=== PATIENT | male | born 1985 | race Caucasian/White ===

== ENCOUNTER 2018-12-12 12:27 | Emergency (ER) | payer SELFPAY ==
[2018-12-12] MEDS ORDERED: ONDANSETRON 4 MG TAB.RAPDIS PO ONE (13:15)
--- NOTE | 2018-12-12 13:17 | ER Document Report ---
ED Medical Screen (RME) - General Chief Complaint: Alcohol Withdrawl Stated Complaint: WITHDRAWL Time Seen by Provider: 12/12/18 13:10 Notes: 33-year-old male patient comes emergency room requesting detox. States he drinks 1 L of liquor on a daily basis. Last drink was about midnight. He last went through a detox program about a year ago, and states he started drinking the day he got out of that 6-day program. He is concerned about the symptoms he would experience if he does not continue drinking. He states he feels like he is getting dehydrated now. His heart rate is in the 80s, and he is not shaking at this time. I have greeted and performed a rapid initial assessment of this patient. A comprehensive ED assessment and evaluation of the patient, analysis of test results and completion of the medical decision making process will be conducted by additional ED providers. TRAVEL OUTSIDE OF THE [place] IN LAST 30 DAYS: No - Related Data Allergies/Adverse Reactions: No Known Allergies Allergy (Verified 12/12/18 12:29)
[2018-12-12 15:04] LABS: ABSOLUTE LYMPHOCYTES (AUTO) 1.7 10^3/uL (0.5-4.7); ABSOLUTE MONOCYTES (AUTO) 0.5 10^3/uL (0.1-1.4); ABSOLUTE NEUT (AUTO) 4.4 10^3/uL (1.7-8.2); BASOPHILS % (AUTO) 0.4 % (0-2); EOSINOPHILS % (AUTO) 0.5 % (0-6); HEMATOCRIT 44.3 % (37.9-51.0); HEMOGLOBIN 15.3 g/dL (13.5-17.0); LYMPHOCYTES % (AUTO) 26.3 % (13-45); MEAN CORPUSCULAR HEMOGLOBIN 32.2 pg (27.0-33.4); MEAN CORPUSCULAR HGB CONC 34.6 g/dL (32.0-36.0); MEAN CORPUSCULAR VOLUME 93 fl (80-97); MONOCYTES % (AUTO) 7.3 % (3-13); PLATELET COUNT 228 10^3/uL (150-450); RED BLOOD COUNT 4.75 10^6/uL (4.35-5.55); RED CELL DISTRIBUTION WIDTH 12.5 % (11.5-14.0); SEGMENTED NEUTROPHILS % (AUTO) 65.5 % (42-78); TOTAL CELLS COUNTED % (AUTO) 100 %; WHITE BLOOD COUNT 6.6 10^3/uL (4.0-10.5)
[2018-12-12 15:21] LABS: ALANINE AMINOTRANSFERASE 65 U/L (21-72); ALBUMIN 4.9 g/dL (3.5-5.0); ALCOHOL 216 mg/dL (NONE DETECTED); ALKALINE PHOSPHATASE 69 U/L (38-126); ANION GAP 12 (5-19); ASPARTATE AMINO TRANSFERASE 74 U/L (17-59); BILIRUBIN,DIRECT 0.2 mg/dL (0.0-0.4); BILIRUBIN,TOTAL 0.4 mg/dL (0.2-1.3); BLOOD UREA NITROGEN 9 mg/dL (7-20); CALCIUM 8.9 mg/dL (8.4-10.2); CARBON DIOXIDE 30 mmol/L (22-30); CHLORIDE 102 mmol/L (98-107); GLUCOSE 104 mg/dL (75-110); POTASSIUM 4.9 mmol/L (3.6-5.0); SODIUM 143.9 mmol/L (137-145); TOTAL PROTEIN 7.7 g/dL (6.3-8.2)
[2018-12-12 15:23] LABS: ACETAMINOPHEN < 10 ug/mL (10-30); SALICYLATE < 1.0 mg/dL (2.0-20.0)
--- NOTE | 2018-12-12 15:24 | PSYCHOLOGICAL NOTE ---
Psych Note - Psych Note Date seen by psych provider: 12/12/18 Time seen by psych provider: 14:45 Psych Note: Reason for consult:Detox Contact Permissions:None Patient is a 33 yo male presenting to the ED requesting assistance for alcohol detox. Chart review shows no prior MH or S/A visits. 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 Patient states his ETOH use has escalated over the last two months from being able to hide it by drinking only at night to needing to drink when he wakes up in order to function. He reports 1ltr/vodka daily for many years but states "I drink so much it's hard to say how much it is exactly" He reports an unknown number of prior detox with last one year ago for approximately 6 days with relapse promptly after discharge. He denies ever engaging in rehab or outpatient SAIOP after detox. Patient denies family S/A or MH hx, denies SI, HI, and AV/H, denies MH dx, past suicide attempts, hx of NSSI or IP treatment. Patient denies any hx of trauma and denies legal problems. Patient and his fellow employees rent a house in [place]. He is not currently on any medication, denies drug allergies or seizure disorder but discloses that he's had one seizure during withdrawal in the past. Patient is alert and oriented x 4. Mood is anxious with mood affect. Patient denies SI, HI, and AV/H, does not appear to be responding to internal stimuli, and no delusions were noted. Conversational speech was WNL for rate, tone, and prosody. Eye contact was maintained. Thought processes were linear, organized, and rational. Intellectual abilities were estimated within the average range. Attention/concentration was WNL while, insight, judgment, and impulse control were fair. Diagnosis: 303.90 (F10.20) Alcohol Use Disorder, Severe Medication recommendations as per psychiatric provider, Dr. Robles are as follows: No medication recommendations at this time Patient is psychiatrically clear from acute psychiatric services as there is not risk of harm to self or others aeb Patient denies SI, HI, and AV/H, does not appear to be responding to internal stimuli, and no delusions were noted. Patient is a 33 yo male presenting to the ED requesting assistance with detox from alcohol/is 1ltr.day vodka for unstated number of years. Patient was provided with prychoeducation about the process for connecting to detox services and given contact information for [facility]. Also provided psychoeducation to patient about self-pay short, mid range and long-term rehabs available and benefits. Plan is for patient to call [facility] upon discharged to obtain a bed. Consulted Dr. Gracia in the care and treatment of this patient and ED physician who is in agreement with disposition and recommendation.
--- NOTE | 2018-12-12 15:26 | EKG REPORT ---
SEVERITY:- OTHERWISE NORMAL ECG - SINUS RHYTHM ACCELERATED AV CONDUCTION. : Confirmed by: Aris Hernandez MD 12-Dec-2018 15:25:29
[2018-12-12 15:29] LABS: APPEARANCE,URINE CLEAR; BILIRUBIN,URINE NEGATIVE (NEGATIVE); COLOR,URINE YELLOW; GLUCOSE, URINE NEGATIVE (NEGATIVE); KETONES,URINE NEGATIVE (NEGATIVE); LEUKOCYTE ESTERASE,URINE NEGATIVE (NEGATIVE); NITRITE,URINE NEGATIVE (NEGATIVE); PROTEIN,URINE NEGATIVE (NEGATIVE); URINE SPECIFIC GRAVITY 1.024; UROBILINOGEN,URINE NEGATIVE mg/dL (<2.0)
[2018-12-12 15:45] LABS: URINE BARBITURATES SCREEN NEGATIVE; URINE BENZODIAZEPINES SCREEN NEGATIVE; URINE COCAINE SCREEN NEGATIVE; URINE MARIJUANA (THC) SCREEN NEGATIVE; URINE METHADONE SCREEN NEGATIVE; URINE PHENCYCLIDINE SCREEN NEGATIVE
[2018-12-12] MEDS ORDERED: FOLIC ACID 1 MG TABLET PO ONE (19:12)
[2018-12-12] MEDS ORDERED: DIAZEPAM INJ 10 MG/2 ML DISP.SYRIN IV ONE (19:12)
[2018-12-12] MEDS ORDERED: ONDANSETRON HCL INJ/PF 4 MG/2 ML SDV IV ONE (19:12)
[2018-12-12] MEDS ORDERED: THIAMINE HCL 100 MG TABLET PO ONE (19:12)
[2018-12-12] MEDS: RINGERS SOLUTION,LACTATED 1,000 ML IV PRN ×2 (19:32→20:02)
[2018-12-12] MEDS ORDERED: DIAZEPAM 5 MG TABLET PO ONE (21:26)
[2018-12-12 21:42] VITALS: BP 106/90
--- NOTE | 2018-12-13 04:23 | ER Document Report ---
Entered by JEFFRY CAMARGO SCRIBE 12/12/181936 Acting as scribe for:ERIN HOGAN DO ED Substance Abuse / Acc. OD - General Chief Complaint: Alcohol Withdrawl Stated Complaint: WITHDRAWL Time Seen by Provider: 12/12/18 13:10 Mode of Arrival: Ambulatory Information source: Patient Notes: 33-year-old male who presents to the emergency department today with complaints of EtOH withdrawal. Patient states he drinks about a liter of liquor a day. Patient states he has gone to rehab in the past and had successfully quit drinking for a year or two in the past. Patient states he recently moved here from [place] to "start a [employer]". Patient states he works for a "[employer] company" and his reason for wanting to quit drinking is being talked to by his boss, friends, and family. Patient states the people he is now around here will not allow him to drink and he does wish to quit. Patient states he has been in withdrawal in the past and he has had muscle cramping with it today. TRAVEL OUTSIDE OF THE [place] IN LAST 30 DAYS: No - Related Data Allergies/Adverse Reactions: No Known Allergies Allergy (Verified 12/12/18 12:29) Past Medical History - General Information source: Patient - Social History Smoking Status: Current Every Day Smoker Cigarette use (# per day): Yes Chew tobacco use (# tins/day): No Frequency of alcohol use: Heavy Drug Abuse: Marijuana Lives with: Family Family History: Reviewed & Not Pertinent Patient has suicidal ideation: No Patient has homicidal ideation: No Renal/ Medical History: Denies: Hx Peritoneal Dialysis Review of Systems - Review of Systems Constitutional: See HPI, Other - EtOH withdrawal EENT: No symptoms reported Cardiovascular: No symptoms reported Respiratory: No symptoms reported Gastrointestinal: See HPI, Nausea Genitourinary: No symptoms reported Male Genitourinary: No symptoms reported Musculoskeletal: See HPI, Muscle pain Skin: No symptoms reported Hematologic/Lymphatic: No symptoms reported Neurological/Psychological: No symptoms reported -: Yes All other systems reviewed and negative Physical Exam - Vital signs Vitals: Temp Pulse Resp BP Pulse Ox 97.4 F 89 18 122/79 99 12/12/18 12:34 12/12/18 12:34 12/12/18 12:34 12/12/18 12:34 12/12/18 12:34 Interpretation: Tachycardic - General General appearance: Appears well, Alert - HEENT Head: Normocephalic, Atraumatic Eyes: Normal Pupils: PERRL Mucous membranes: Dry - Respiratory Respiratory status: No respiratory distress Chest status: Nontender Breath sounds: Normal Chest palpation: Normal - Cardiovascular Rhythm: Regular Heart sounds: Normal auscultation Murmur: No - Abdominal Inspection: Normal Distension: No distension Bowel sounds: Normal Tenderness: Nontender Organomegaly: No organomegaly - Back Back: Normal, Nontender - Extremities General upper extremity: Normal inspection, Nontender, Normal color, Normal ROM, Normal temperature General lower extremity: Normal inspection, Nontender, Normal color, Normal ROM, Normal temperature, Normal weight bearing. No: Josafat's sign - Neurological Neuro grossly intact: Yes Cognition: Normal Orientation: AAOx4 Anton Coma Scale Eye Opening: Spontaneous Reddick Coma Scale Verbal: Oriented Reddick Coma Scale Motor: Obeys Commands Reddick Coma Scale Total: 15 Speech: Normal Motor strength normal: LUE, RUE, LLE, RLE Sensory: Normal - Psychological Associated symptoms: Normal affect, Normal mood - Skin Skin Temperature: Warm Skin Moisture: Dry Skin Color: Normal Course - Re-evaluation Re-evalutation: 12/12 Patient is a 33-year-old male who drinks a liter of vodka and comes in complaining of alcohol withdrawal. Patient's initial alcohol was 210. This was 6 hours ago. Initially patient had stable vitals and is not tachycardic. Given Valium, fluids, nausea medication. Patient is taking p.o. and is no longer tremulous. 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 States that he will not be around people that are drinking and that he has quit in the past. He is not looking for admission to the hospital. He is just looking to get some help for alcohol withdrawal and to stop drinking. Patient's vitals have responded well to 1 dose of Valium in the emergency department as well as fluids. He is taking p.o. and no longer tremulous. Patient will be given a prescription for a Librium taper. He has been strongly advised that he is not to drink alcohol while taking Librium. If he decides to start drinking again then he is not to take the Librium anymore. Patient understands and agrees with plan. He has already been seen by mental health services and given information about outpatient rehabilitation. Medically stable for discharge. Return immediately if any worsening or concerning symptoms, particularly tremulousness, hallucinations, or seizure activity. Patient of note, states that he has never had hallucinations or seizure activity from alcohol withdrawal. - Vital Signs Vital signs: Temp Pulse Resp BP Pulse Ox 97.9 F 111 H 18 106/90 H 100 12/12/18 21:25 12/12/18 19:01 12/12/18 21:25 12/12/18 21:25 12/12/18 21:25 - Laboratory Result Diagrams: 12/12/18 14:30 12/12/18 14:30 Laboratory results interpreted by me: 12/12/18 14:30 AST 74 H Salicylates < 1.0 L Acetaminophen < 10 L Discharge - Discharge Clinical Impression: Alcohol withdrawal Qualifiers: Complication of substance-induced condition: uncomplicated Qualified Code(s): F10.230 - Alcohol dependence with withdrawal, uncomplicated Condition: Stable Disposition: HOME, SELF-CARE Instructions: Alcohol Withdrawl (OM), Chronic Alcoholism (OM) Additional Instructions: Please follow-up with outpatient rehabilitation services. Please return if you have any worsening symptoms. Do not drink alcohol when you are taking Librium. It is very important as it could cause severe problems. Prescriptions: Chlordiazepoxide HCl [Librium 25 mg Capsule] 50 mg PO ASDIR PRN #20 capsule PRN Reason: Forms: Return to Work Scribe Attestation: 12/13/18 04:23 I personally performed the services described in the documentation, reviewed and edited the documentation which was dictated to the scribe in my presence, and it accurately records my words and actions. Scribe Documentation - Scribe Written by Zeinab:: Zeinab Fulton, 12/12/[id number] acting as scribe for :: Aleks I personally performed the services described in the documentation, reviewed and edited the documentation which was dictated to the scribe in my presence, and it accurately records my words and actions.
== END 2018-12-12 21:42 | disposition home or self-care (01) ==
LOC: ER 12:27
DX: F10.230 Alcohol dependence with withdrawal, uncomplicated (principal); F17.210 Nicotine dependence, cigarettes, uncomplicated; Y90.7 Blood alcohol level of 200-239 mg/100 ml
CPT/HCPCS: 93005; 99285; 96361; 96374; 96375; 36415; 80307 ×4; 85025; 80053; 81001; 93010; J3360; S0119; J2405; J7120